=== PATIENT | male | born 1995 | race Two or more races ===

== ENCOUNTER 2022-01-31 16:10 | Emergency (ER) | payer MEDICAID ==
[~2022-01-31] VITALS: Ht 165.1 cm; Wt 78.8 kg
[2022-01-31] MEDS ORDERED: CLIN300C8 PO (17:25)
[2022-01-31] MEDS ORDERED: IBUP800T27 PO (17:25)
[2022-01-31] MEDS ORDERED: IBUPROFEN 800 MG TAB PO ONE (17:30)
[2022-01-31 17:47] VITALS: BP 140/89
== END 2022-01-31 17:55 | disposition home or self-care (01) ==
LOC: ER 16:10
DX: K08.89 Other specified disorders of teeth and supporting structures (principal); Z88.1 Allergy status to other antibiotic agents